=== PATIENT | female | born 1990 | race Caucasian/White ===

== ENCOUNTER 2017-02-13 10:58 | Emergency (ER) | payer MEDICAID ==
--- NOTE | 2017-02-13 12:03 | ED Physician Chart ---
Chief Complaint/HPI - Patient Information Date Seen:: 02/13/17 Time Seen:: 11:20 Allergies:: Allergies Allergy/AdvReac Type Severity Reaction Status Date / Time No Known Allergies Allergy Verified 02/13/17 11:09 Vitals:: Vital Signs - 8 hr 02/13/17 10:58 Temp 97.6 F HR 79 RR 16 BP 126/89 O2 Sat % 99 Historian:: Patient Review:: Nurse's Note Reviewed Past Medical History - Past Medical History Obtainable: Yes Past Medical History: DM Family History: Diabetes Melitus, HTN Social History: Non Smoker, No Alcohol, No Drug Use, Surgical History: None Psychiatricy History: None Medication: Reviewed Family Medical History - Family Member Father Hx Family Hypertension: Yes Hx Family Diabetes: Yes Physical Exam - Physical Examination General/Constitutional: Awake, Well-developed, well-nourished, Alert, No distress, GCS 15, Non-toxic appearing, Ambulatory Head: Atraumatic Eyes: Lids, conjuctiva normal, PERRL, EOMI Skin: No rash ENMT: Lips, teeth, gums nl, Oropharynx nl, Tonsils nl Neck: Nontender Respiratory: Nl effort/Exclusion, Clear to Auscultation, No Wheeze/Rhonchi/Rales Cardio Vascular: RRR, No murmur, gallop, rubs, NL S1 S2 GI: No tenderness/rebounding/guarding, Normal BS's Extremities: No edema (dtrs normal) Labs/Radiology/EKG Results - Radiology Results Results: Positive movement is seen with a heart rate of 150. Assessment - Assessment General Assessment: Medical decision making: 1, para 0, insulin-dependent diabetic in the second trimester of with routine OB follow-up has not felt movement in 2 days. No bleeding, no contractions, no fever/chills or other malignant historical findings. Will order ultrasound. ED Septic Shock - . Is Septic Shock (SBP<90, OR Lactate>4 mmol\L) present?: No - <6hrs of presentation: Vital Signs: Vital Signs - 8 hr 02/13/17 10:58 Temp 97.6 F HR 79 RR 16 BP 126/89 O2 Sat % 99 Reassessment (Disposition) - Diagnosis Diagnosis:: Diagnosis: Intrauterine with positive movement and normal heart rate. Insulin-dependent diabetes - Aftercare/Follow up Instructions Aftercare/Follow-Up Instructions:: Counseled pt regarding lab results/diagnosis & need follow up, Refer to Discharge Instructions - Patient Disposition Discharge/Transfer:: Home ED Discharge Plan - Patient Disposition Admit/Discharge/Transfer: PT DISCHARGED HOME Condition at Disposition: Stable Additional Instructions: Discharge instructions: He your OB doctor for routine follow-up, follow blood sugars carefully, return to emergency room for any unanticipated severe changes in her medical condition.
--- NOTE | 2017-02-13 14:00 | Diagnostic Imaging Report ---
Ultrasound OB, limited HISTORY: female. No movement for 2 days COMPARISON: None Technique: Limited sonographic images of the pelvis was performed in multiple planes. Findings: Exam is incomplete as patient was unable to tolerate entire procedure. Partially visualized intrauterine seen with heart rate 150 bpm. anatomy was not able to be evaluated this time. Bilateral adnexal cystic lesions are seen on the right measuring 7.1 cm on the left measuring 7.7 cm. The placenta appears anterior in position. Assessment for free fluid was limited on this exam. IMPRESSION: Incomplete exam as patient was unable tolerate the entire procedure. Positive heart tones of 150 bpm was noted. Recommend clinical correlation and short-term follow-up including dedicated complete OB ultrasound. Indeterminate Bilateral large adnexal cystic lesions. Again dedicated short-term follow-up ultrasound is recommended for further assessment.
== END 2017-02-13 12:28 | disposition home or self-care (01) ==
LOC: ER 10:58
DX: O24.012 Pre-existing type 1 diabetes mellitus, in pregnancy, second trimester (principal); Z3A.00 Weeks of gestation of pregnancy not specified
CPT/HCPCS: 76815-TC; Z7502

== ENCOUNTER 2017-05-15 18:51 | Emergency (ER) | payer MEDICAID ==
--- NOTE | 2017-05-15 19:48 | ED Physician Chart ---
Chief Complaint/HPI - Patient Information Date Seen:: 05/15/17 Time Seen:: 19:23 Chief Complaint:: BLADDER AREA PAIN History of Present Illness:: THIS IS A 26 YO FEMALE WHO IS AND HAS BLADDER AREA DISCOMFORT. SHE DENIES VAGINAL BLEEDING, MORNING SICKNESS BUT ADMITS TO BEING DIABETIC. SHE IS OBESE BUT DENIES ALL OTHER MEDICAL ISSUES. SHE ALSO HAS FREQUENCY AND SOME DYSURIA. Allergies:: Allergies Allergy/AdvReac Type Severity Reaction Status Date / Time No Known Allergies Allergy Verified 02/13/17 11:09 Vitals:: Vital Signs - 8 hr 05/15/17 19:12 Temp 98.4 F HR 83 RR 17 BP 128/71 O2 Sat % 98 Historian:: Patient Review:: Nurse's Note Reviewed Review of Systems - Review of Systems General/Constitutional: No fever, No chills, No weight loss, No weakness, No diaphoresis, No edema, No loss of appetite Skin: No skin lesions, No rash, No bruising Head: No headache, No light-headedness Eyes: No loss of vision, No pain, No diplopia ENT: No earache, No nasal drainage, No sore throat, No tinnitus Neck: No neck pain, No swelling, No thyromegaly, No stiffness, No mass noted Cardio Vascular: No chest pain, No palpitations, No PND, No orthopnea, No edema Pulmonary: No SOB, No cough, No sputum, No wheezing GI: No nausea, No vomiting, No diarrhea, No pain, No melena, No hematochezia, No constipation, No hematemesis G/U: No dysuria, No frequency, No hematuria, Other (BLADDER AREA TENDERNESS) Musculoskeletal: No bone or joint pain, No back pain, No muscle pain Endocrine: No polyuria, No polydipsia Psychiatric: No prior psych history, No depression, No anxiety, No suicidal ideation Hematopoietic: No bruising, No lymphadenopathy Allergic/Immuno: No urticaria, No angioedema Neurological: No syncope, No focal symptoms, No weakness, No paresthesia, No headache, No seizure, No dizziness, No confusion, No vertigo Past Medical History - Past Medical History Obtainable: Yes Past Medical History: DM Family History: None Social History: Non Smoker, No Alcohol, No Drug Use Surgical History: None Psychiatricy History: None Medication: Reviewed Family Medical History - Family Member Father Hx Family Hypertension: Yes Hx Family Diabetes: Yes Physical Exam - Physical Examination General/Constitutional: Awake, Well-developed, well-nourished, Alert, No distress, GCS 15, Non-toxic appearing, Ambulatory Head: Atraumatic Eyes: Lids, conjuctiva normal, PERRL, EOMI Skin: Nl inspection, No rash, No skin lesions, No ecchymosis, Well hydrated, No lymphadenopathy ENMT: External ears, nose nl, Nasal exam nl, Lips, teeth, gums nl Neck: Nontender, Full ROM w/o pain, No JVD, No nuchal rigidity, No bruit, No mass, No stridor Respiratory: Nl effort/Exclusion, Clear to Auscultation, No Wheeze/Rhonchi/Rales Cardio Vascular: RRR, No murmur, gallop, rubs, NL S1 S2 GI: No tenderness/rebounding/guarding, No organomegaly, No hernia, Normal BS's, Nondistended, No mass/bruits, No McBurney tenderness : No CVA tenderness Other comments:: TENDERNESS OF BLADDER AREA Extremities: No tenderness or effusion, Full ROM, normal strength in all extremities, No edema, Normal digits & nails Neuro/Psych: Alert/oriented, DTR's symmetric, Normal sensory exam, Normal motor strength, Judgement/insight normal, Mood normal, Normal gait, No focal deficits Misc: normal gait, Normal back, No paraspinal tenderness Labs/Radiology/EKG Results - Lab Results Results: Abnormal Lab Results 05/15/17 18:57 Urine Source CLEAN C Urine Color YELLOW Urine Clarity SLIGHT CLOUDY Urine pH 6.0 Ur Specific [place] >= 1.030 Urine Protein TRACE Urine Glucose (UA) NEGATIVE Urine Ketones 40 H Urine Blood NEGATIVE Urine Nitrate NEGATIVE Urine Bilirubin SMALL H Urine Urobilinogen 0.2 Ur Leukocyte Esterase SMALL H Urine RBC 0-2 Urine WBC 6-10 H Ur Epithelial Cells MANY Urine Bacteria MANY Assessment - Assessment General Assessment: urinary tract infection ED Septic Shock - . Is Septic Shock (SBP<90, OR Lactate>4 mmol\L) present?: No - <6hrs of presentation: Vital Signs: Vital Signs - 8 hr 05/15/17 19:12 Temp 98.4 F HR 83 RR 17 BP 128/71 O2 Sat % 98 Reassessment (Disposition) - Reassessment Reassessment Condition:: Unchanged - Diagnosis Diagnosis:: urinary tract infection early - Aftercare/Follow up Instructions Aftercare/Follow-Up Instructions:: Counseled pt regarding lab results/diagnosis & need follow up, Refer to Discharge Instructions, Counseled pt & family regarding lab results/diagnosis & need follow up - Patient Disposition Discharge/Transfer:: Home Condition at Disposition:: Unchanged ED Discharge Plan - Patient Disposition Admit/Discharge/Transfer: PT DISCHARGED HOME Condition at Disposition: Unchanged
[2017-05-15 19:58] LABS: URINE BILIRUBIN SMALL (NEGATIVE); URINE BLOOD NEGATIVE (NEGATIVE); URINE GLUCOSE (UA) NEGATIVE (NEGATIVE); URINE KETONE 40 mg/dL (NEGATIVE); URINE PROTEIN TRACE mg/dL (NEGATIVE); URINE UROBILINOGEN 0.2 E.U./dL (0.2 - 1.0)
[2017-05-15 20:04] LABS: URINE COLOR YELLOW
[2017-05-15 20:05] LABS: URINE BACTERIA MANY /hpf (NONE SEEN); URINE EPITHELIAL CELLS MANY /lpf (FEW); URINE RBC 0-2 /hpf (0-5)
== END 2017-05-15 20:43 | disposition home or self-care (01) ==
LOC: ER 18:51
DX: O23.40 Unspecified infection of urinary tract in pregnancy, unspecified trimester (principal); E11.9 Type 2 diabetes mellitus without complications; Z3A.00 Weeks of gestation of pregnancy not specified
CPT/HCPCS: 99283; 96372; 81001; J0696; J2001; Z7502

== ENCOUNTER 2017-07-06 23:50 | Inpatient (IN) | payer MEDICAID ==
[2017-07-07] MEDS ORDERED: Sodium Chloride 0.9% 1,000 ML IV ONE (00:29)
--- NOTE | 2017-07-07 00:37 | ED Physician Chart ---
ED Chief Complaint/HPI - Patient Information Date Seen:: 07/07/17 Time Seen:: 00:20 Chief Complaint:: chills and subjective fever History of Present Illness:: Patient developed chills and subjective fever 1 hour prior to admission. She's had no vomiting, diarrhea or cough. Patient had a section 5 days ago. During the section they also resected a couple of ovarian cysts. Patient is breast-feeding. Allergies:: Allergies Allergy/AdvReac Type Severity Reaction Status Date / Time No Known Allergies Allergy Verified 02/13/17 11:09 Vitals:: Vital Signs - 8 hr 07/06/17 23:55 Temp 102.9 F HR 111 RR 19 BP 157/87 O2 Sat % 97 Historian:: Patient Review:: Nurse's Note Reviewed ED Review of Systems - Review of Systems General/Constitutional: Fever, Chills Skin: No skin lesions Head: No headache Eyes: No loss of vision ENT: No earache Neck: No neck pain Cardio Vascular: Chest pain Pulmonary: No SOB, No cough GI: No nausea, No vomiting, No diarrhea G/U: No dysuria, No hematuria Musculoskeletal: No bone or joint pain Endocrine: No polyuria, No polydipsia Psychiatric: No prior psych history Hematopoietic: No bruising Allergic/Immuno: No urticaria Neurological: No syncope, No focal symptoms ED Past Medical History - Past Medical History Past Medical History: DM Family History: Diabetes Melitus, HTN, Other (cerebrovascular accident; dementia ) Social History: Non Smoker, No Alcohol Surgical History: Psychiatricy History: None (cardiomegaly; cerebrovascular accident; dementia) Family Medical History - Family Member Father History Unknown: Yes Hx Family Hypertension: Yes Hx Family Diabetes: Yes ED Physical Exam - Physical Examination General/Constitutional: Well-developed, well-nourished, Alert, No distress Head: Atraumatic Eyes: Lids, conjuctiva normal, PERRL Skin: Nl inspection ENMT: External ears, nose nl, TM canals nl, Nasal exam nl, Lips, teeth, gums nl , Oropharynx nl, Tonsils nl Neck: No nuchal rigidity Respiratory: Nl effort/Exclusion, Clear to Auscultation, No Wheeze/Rhonchi/Rales Cardio Vascular: RRR, No murmur, gallop, rubs, NL S1 S2 GI: No tenderness/rebounding/guarding, No organomegaly, No hernia, Normal BS's : No CVA tenderness Extremities: Normal digits & nails Neuro/Psych: No focal deficits Misc: Normal back ED Labs/Radiology/EKG Results - Lab Results Results: Laboratory Results - last 24 hr 07/07/17 07/07/17 07/07/17 00:15 00:35 00:35 WBC 15.4 H RBC 3.66 L Hgb 10.4 L Hct 30.2 L MCV 82.5 MCH 28.4 MCHC Differential 34.4 RDW 13.0 Plt Count 402 H MPV 6.6 Neutrophils (Manual) 86 H Lymphocytes 6 L Monocytes 7 Eosinophils 1 Platelet Estimate ADEQUATE Sodium 135 L Potassium 3.4 L Chloride 105 Carbon Dioxide 21.4 Anion Gap 12.0 BUN 9 Creatinine 0.6 Est GFR ( Amer) > 60.0 Est GFR (Non-Af Amer) > 60.0 BUN/Creatinine Ratio 15.0 Glucose 121 H Whole Bld Lactic Acid Calcium 8.4 L Magnesium 1.6 L Urine Source CLEAN C Urine Color BONNIE Urine Clarity HAZY Urine pH 6.0 Ur Specific [place] 1.025 Urine Protein 30 H Urine Glucose (UA) NEGATIVE Urine Ketones >=80 H Urine Blood LARGE H Urine Nitrate NEGATIVE Urine Bilirubin SMALL H Urine Urobilinogen 0.2 Ur Leukocyte Esterase MODERATE H Urine RBC 50-100 H Urine WBC 25-50 H Ur Epithelial Cells FEW Urine Bacteria 1+ H 07/07/17 00:35 WBC RBC Hgb Hct MCV MCH MCHC Differential RDW Plt Count MPV Neutrophils (Manual) Lymphocytes Monocytes Eosinophils Platelet Estimate Sodium Potassium Chloride Carbon Dioxide Anion Gap BUN Creatinine Est GFR ( Amer) Est GFR (Non-Af Amer) BUN/Creatinine Ratio Glucose Whole Bld Lactic Acid 0.92 Calcium Magnesium Urine Source Urine Color Urine Clarity Urine pH Ur Specific [place] Urine Protein Urine Glucose (UA) Urine Ketones Urine Blood Urine Nitrate Urine Bilirubin Urine Urobilinogen Ur Leukocyte Esterase Urine RBC Urine WBC Ur Epithelial Cells Urine Bacteria ED Septic Shock - . Is Septic Shock (SBP<90, OR Lactate>4 mmol\L) present?: No - <6hrs of presentation: Vital Signs: Vital Signs - 8 hr 07/06/17 23:55 Temp 102.9 F HR 111 RR 19 BP 157/87 O2 Sat % 97 ED Reassessment (Disposition) - Reassessment Reassessment Condition:: Improved - Diagnosis Diagnosis:: Acute febrile illness; urinary tract infection; anemia; hypomagnesemia; leukocytosis - Patient Disposition Spoke to:: Aimee Dee Admitting Medical Physician:: Aimee Dee Condition at Disposition:: Stable, Improved ED Discharge Plan - Patient Disposition Instructions: Urinary Tract Infection, [id number] Additional Instructions: FOLLOW UP WITH YOUR PRIMARY MEDICAL DOCTOR ANIA TAKE PRESCRIBED MEDICATIONS ORDERED
[2017-07-07 00:38] LABS: URINE BILIRUBIN SMALL (NEGATIVE); URINE BLOOD LARGE (NEGATIVE); URINE GLUCOSE (UA) NEGATIVE (NEGATIVE); URINE KETONE >=80 mg/dL (NEGATIVE); URINE PROTEIN 30 mg/dL (NEGATIVE); URINE UROBILINOGEN 0.2 E.U./dL (0.2 - 1.0)
[2017-07-07 00:47] LABS: URINE BACTERIA 1+ /hpf (NONE SEEN); URINE COLOR AMBER; URINE EPITHELIAL CELLS FEW /lpf (FEW); URINE RBC 50-100 /hpf (0-5)
[2017-07-07 00:48] LABS: URINE WBC 25-50 /hpf (0-5)
[2017-07-07 00:54] LABS: HEMATOCRIT 30.2 % (41.0-60); HEMOGLOBIN 10.4 gm/dL (12-16); MEAN CELL VOLUME 82.5 fl (81-100); MEAN CORPUSCULAR HEMOGLOBIN 28.4 pg (27.0-31.0); MEAN CORPUSCULAR HGB CONC 34.4 pg (28.0-36.0); MEAN PLATELET VOLUME 6.6 fl; PLATELET COUNT 402 Th/cmm (150-400); RED BLOOD COUNT 3.66 Mil/cmm (3.80-5.10)
[2017-07-07] MEDS ORDERED: cefTRIAXone 1 GM in Sodium Chloride 0.9% 50 ML IV ONE (00:58)
[2017-07-07 01:02] LABS: WHITE BLOOD COUNT 15.4 Th/cmm (4.8-10.8)
[2017-07-07 01:15] LABS: BUN - UREA NITROGEN 9 mg/dL (7-25); CALCIUM SERUM 8.4 mg/dL (8.6-10.3); CARBON DIOXIDE 21.4 mEq/L (21.0-31.0); CHLORIDE 105 mEq/L (98-107); CREATININE - SERUM 0.6 mg/dL (0.6-1.2); GLUCOSE 121 mg/dL (70-105); MAGNESIUM 1.6 mg/dL (1.9-2.7); POTASSIUM SERUM 3.4 mEq/L (3.5-5.1); SODIUM SERUM 135 mEq/L (136-145)
[2017-07-07 01:16] LABS: EOSINOPHIL 1 % (0-5); NEUTROPHILS 86 % (40-80); TOTAL CELLS COUNTED 100
[2017-07-07 01:17] LABS: PLATELET ESTIMATE ADEQUATE (NORMAL)
[2017-07-07] MEDS ORDERED: Mag Sulfate 2gm/50mL Premix 2 GM/50 ML BAG IV ONE ×2 (01:27→01:31)
[2017-07-07] MEDS ORDERED: Potassium Chloride 20 mEq ER Tab PO ONE ×3 (01:27→10:04)
[2017-07-07] MEDS ORDERED: Acetaminophen 500 MG TAB PO PRN (02:23)
[2017-07-07 06:17] LABS: % BASOPHILS 0.5 % (0.0-2.0); % EOSINOPHILS 0.7 % (0.0-5.0); % MONOCYTES 6.6 % (2.0-10.0); % NEUTROPHILS 79.2 % (40.0-80.0); HEMATOCRIT 27.7 % (41.0-60); HEMOGLOBIN 9.5 gm/dL (12-16); MEAN CELL VOLUME 82.6 fl (81-100); MEAN CORPUSCULAR HEMOGLOBIN 28.2 pg (27.0-31.0); MEAN CORPUSCULAR HGB CONC 34.2 pg (28.0-36.0); MEAN PLATELET VOLUME 6.9 fl; NEUTROPHILE ABSOLUTE 11.3 Th/cmm (1.8-8.0); PLATELET COUNT 395 Th/cmm (150-400); RED BLOOD COUNT 3.36 Mil/cmm (3.80-5.10); RED CELL DISTRIBUTION WIDTH 13.4 % (11.5-20.0)
[2017-07-07 06:31] LABS: ALKALINE PHOSPHATASE 153 U/L (34-104); ANION GAP 10.9 (7.0-16.0); BILIRUBIN,TOTAL 0.3 mg/dL (0.3-1.0); BUN - UREA NITROGEN 7 mg/dL (7-25); BUN/CREATININE RATIO 17.5; CALCIUM SERUM 7.9 mg/dL (8.6-10.3); CARBON DIOXIDE 22.4 mEq/L (21.0-31.0); CHLORIDE 107 mEq/L (98-107); CREATININE - SERUM 0.4 mg/dL (0.6-1.2); GLUCOSE 105 mg/dL (70-105); POTASSIUM SERUM 3.3 mEq/L (3.5-5.1); SGOT 16 U/L (13-39); SGPT/ALT 26 U/L (7-52); SODIUM SERUM 137 mEq/L (136-145)
[2017-07-07 06:35] LABS: WHITE BLOOD COUNT 14.3 Th/cmm (4.8-10.8)
--- NOTE | 2017-07-07 11:38 | History & Physical ---
ADMIT DATE: 07/07/2017 CHIEF COMPLAINT: Abdominal pain, fever, chills. HISTORY OF PRESENT ILLNESS: This is a 26-year-old female who recently underwent a about 5 days ago, was in her usual state of health until yesterday when she started experiencing fever, chills, and abdominal pain, which is generalized. She states that she felt somewhat nauseated, but has had no emesis. She denies any diarrhea or constipation. Pertinent findings on admission included a UA consistent with a UTI. The patient has been admitted to the medical/surgical floor for management and care. On further notice, the patient states that she has been her . PAST MEDICAL HISTORY: Diabetes. PAST SURGICAL HISTORY: . FAMILY HISTORY: Diabetes, on father side, who had at age 42 secondary to GA. ALLERGIES: NKDA. OUTPATIENT MEDICATIONS: Tylenol p.r.n., folic acid 1 mg every day, NovoLog insulin sliding scale, metformin 500 mg b.i.d. REVIEW OF SYSTEMS: CONSTITUTIONAL: Fever and chills. CARDIAC: No chest pain or palpitations. PULMONARY: No cough or phlegm production. GASTROINTESTINAL: Please refer to the HPI. GENITOURINARY: She denies any dysuria or hematuria at this time. NEUROLOGIC: No changes in vision, no headaches. PHYSICAL EXAMINATION: VITAL SIGNS: Temperature 99.3, pulse 76, respirations 18, BP 155/93, satting 98% on 2 liters. GENERAL: Well developed, well nourished, not in acute distress. HEAD AND NECK: Normocephalic, atraumatic. Pupils reactive to light. Extraocular movements are intact. Oropharynx moist and clear. CARDIOVASCULAR: Regular rate and rhythm without any murmurs. LUNGS: Clear to auscultation bilaterally. ABDOMEN: Soft, supple with normoactive bowel sounds. She is mildly tender to palpation epigastrically and suprapubically. LOWER EXTREMITIES: There is no edema. LABORATORY DATA: White count 15.4, H and H 10/30 with a platelet count of 402. Sodium 135, potassium 3.4, glucose 121. Lactic acid 0.92. LFTs show alkaline phosphatase 153, albumin 2.7, AST 16, ALT 26. UA shows large blood, moderate leukocyte esterase, 50-100 rbc's, 25-50 wbc's, and 1+ bacteria. DIAGNOSTICS: No diagnostics have been done. IMPRESSION: 1. Acute febrile illness. 2. Urinary tract infection. 3. Leukocytosis. 4. Type 2 diabetes. 5. Elevated blood pressure. PLAN: The patient has been admitted to the medical/surgical floor for further management and care. She has been placed on Rocephin and has been pancultured. The patient will be placed on a sliding scale per protocol and the patient will be monitored with daily labs. We will follow urine cultures and sensitivities. JOB# [id number] BAILEE
[2017-07-08] MEDS ORDERED: cefTRIAXone 1 GM in Sodium Chloride 0.9% 50 ML IV SCH (01:00)
--- NOTE | 2017-07-08 19:47 | Discharge Summary ---
DATE OF DISCHARGE: 07/07/2017 ADMITTING DIAGNOSES: 1. Acute febrile illness. 2. Urinary tract infection. 3. Leukocytosis. SECONDARY DIAGNOSES: Include: 1. Recent delivery via . 2. Type 2 diabetes. 3. Hypertension. DISCHARGE DIAGNOSES: 1. Acute febrile illness. 2. Urinary tract infection. 3. Leukocytosis. CONSULTANTS: There were no consultants used during this admission. MAJOR PROCEDURES: There were no major procedures done. BRIEF HOSPITAL COURSE: A 26-year-old female who recently underwent a about 5 days ago, was in her usual state of health until the day before admission when she started to experiencing fever, chills and abdominal pain with some nausea, vomiting. There were no other symptoms noted including no dysuria or hematuria by the patient. However, ER workup yielded a UTI and the patient was admitted to the medical floor for further management and care, where the patient was placed on IV Rocephin and supportive care. Her initial white count was 15.4 and on 07/07/2017 the white count had dropped to 14.3. I explained to the patient that Rocephin might not be the best IV medication for her UTI, but it was started given the low excretion on milk since the patient has been . She was agreeable to try another antibiotic like Cipro and she would not breast feed. However, the patient's insurance requested transfer to [facility] given insurance issues. DISCHARGE MEDICATIONS: Ceftriaxone 1 gram every 24 hours, Tylenol 500 mg q.4h. p.r.n., insulin sliding scale. DISPOSITION: The patient was transferred to [facility] given her insurance. JOB# [id number]
== END 2017-07-07 14:30 | disposition short-term general hospital (02) | DRG 561 ==
LOC: ER 23:50 → MSI 07-07 02:20
PROVIDERS: ADMIT Internal Medicine; ATTEND Internal Medicine
DX: O86.20 Urinary tract infection following delivery, unspecified (principal); O24.93 Unspecified diabetes mellitus in the puerperium; O16.5 Unspecified maternal hypertension, complicating the puerperium; O90.81 Anemia of the puerperium; D64.9 Anemia, unspecified; O99.285 Endocrine, nutritional and metabolic diseases complicating the puerperium; E83.42 Hypomagnesemia; Z83.3 Family history of diabetes mellitus; Z82.49 Family history of ischemic heart disease and other diseases of the circulatory system; Z82.3 Family history of stroke
CPT/HCPCS: 36415-UA; 80048-TC; 80053-TC; 81001-TC; 83605; 83735-TC; 85007-TC; 85025-TC; 85027-TC; 85652-TC; 87086-90; J0696; J3475; J7030